=== PATIENT | male | born 1995 | race Caucasian/White ===

== ENCOUNTER 2023-05-15 12:04 | Emergency (ER) | payer SELFPAY ==
[2023-05-15] MEDS ORDERED: Acetaminophen 500 MG Tab PO STA (12:46)
[2023-05-15] MEDS ORDERED: Lidocaine 4% 1 each Patch TOP STA (12:47)
== END 2023-05-15 14:00 | disposition home or self-care (01) ==
LOC: MW.ED 12:04
DX: M25.521 Pain in right elbow (principal)
CPT/HCPCS: 73080; 99283; A9270